=== PATIENT | female | born 2000 | race African-American/Black ===

== ENCOUNTER 2022-09-03 12:30 | Emergency (ER) | payer MEDICAID ==
[~2022-09-03] VITALS: Ht 182.9 cm; Wt 82.0 kg
[2022-09-03 12:38] VITALS: BP 107/57
[2022-09-03] MEDS ORDERED: KETOROLAC 30MG/ML VIAL IM ONE (15:15)
[2022-09-03 16:00] LABS: CLARITY URINE TURBID (CLEAR); COLOR URINE YELLOW (YELLOW); KETONES URINE TRACE (NEGATIVE); LEUKOCYTE ESTERASE URINE 3+ (NEGATIVE); NITRITE URINE NEGATIVE (NEGATIVE); OCCULT BLOOD URINE 2+ (NEGATIVE); PROTEIN URINE 1+ (NEGATIVE)
[2022-09-03] MEDS ORDERED: ACETAMINOPHEN 325MG TABLET PO ONE (16:00)
[2022-09-03] MEDS ORDERED: CEPH500C2 MT (16:27)
[2022-09-03] MEDS ORDERED: IBUP-2029 MT (16:27)
[2022-09-03] MEDS ORDERED: CEFTRIAXONE SODIUM 1 G/VIAL IM ONE (16:30)
== END 2022-09-03 17:45 | disposition home or self-care (01) ==
LOC: ER 13:43
DX: N39.0 Urinary tract infection, site not specified (principal); J45.909 Unspecified asthma, uncomplicated; Z91.013 Allergy to seafood
CPT/HCPCS: 81003; 81025; 87077; 87086; 87186; 96372; 99284; J0696; J1885